=== PATIENT | female | born 1960 | race Caucasian/White ===

== ENCOUNTER 2019-07-10 12:50 | Inpatient (IN) | payer OTHER ==
[~2019-07-10] VITALS: Ht 160 cm; Wt 57.2 kg
--- NOTE | 2019-07-10 14:06 | NUR ---
GARBAGE COLLECTION SUPERVISORCONVENTIONAL UNDERWRITER NOTE: RECEIVED AWAKE PATIENT VIA GURNEY AND ACCOMPANIED BY 2 ENGINEERING DEPARTMENT CHAIR FROM [facility]. PRESENTING WITH PLEASANT DEMEANOR AND APPEARS ALERT AND ORIENTED X4. 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 ABLE TO WALK INDEPENDENTLY AND MAKE NEEDS KNOWN. NO PAIN REPORTED AT THIS TIME. WITH IV SITE AT LEFT AC WITH G20, SITE CLEAN, SECURE AND PATENT. TOLERATING ROOM AIR WELL AT 97%. PATIENT IS VERY MOBILE AND ACTIVE AND UNABLE TO SIT STILL IN ONE PLACE. ATTACHED PLATE DEVELOPER AND PRESENTED WITH SINUS TACHYCARDIA @ 124BPM. NOT IN DISTRESS AND STILL MOVING AROUND A LOT DESPITE EFFORTS TO SLOW HER DOWN. WILL CONTINUE TO MONITOR AND ASSESS PATIENT.
[2019-07-10 14:20] VITALS: BP 127/83
--- NOTE | 2019-07-10 14:20 | NUR ---
EAR NOSE THROAT PHYSICIAN NOTE: PATIENT HAS BEEN GRADUALLY EXHIBITING UNSUAL BEHAVIOR SINCE ADMISSION, UNABLE TO CONTINUALLY ASSESS PATIENT SHE KEEP SAYING THAT SHE NEEDS "TO BE GROUNDED" AFTER EVERY 2 QUESTIONS. NURSE IS UNCLEAR ABOUT WHAT IT MEANS AND THE THAT HAS JUST ARRIVED 5 MINUTES AGO IS AT BEDSIDE AND EXPLAINED WHAT IT MEANT. PATIENT GRADUALLY IS BECOMING VERBALLY AGGRESSIVE AND MORE ERRATIC WITH HER BEHAVIOR AND DEMEANOR EVEN THOUGH MOST OF HER RESPONSES WITH QUESTIONS ARE CONSIDERED NORMAL. AND STAFF TRYING TO CALM PATIENT DOWN BUT SHE REFUSES. WHEN ASKED ABOUT HER CHIEF COMPLAINT OF CHEST PAIN, PATIENT IS NOW STATING THAT SHE HAS CRUSHING/PRESSURE PAIN IN CONCENTRATED IN THE CHEST AND WHEN ASKED THE INTENSITY, SHE REPLIED THAT "IT IS . PATIENT DOES NOT APPEAR TO BE IN DISTRESS, NO FACIAL GRIMACING NOTED. HEART MONITORING SHOWS SINUS TACHYCARDIA BUT OTHER VITAL SIGNS ARE NORMAL. OFFERED OXYGEN VIA NASAL CANNULA BUT PATIENT BECAME AGITATED, AND REFUSED AND IS NOW SITTING AT THE EDGE OF THE BED SCREAMING "I'M GOING TO FALL DOWN. CALL THE DOCTOR NOW". NURSE IS BESIDE THE PATIENT AND IS ENSURING SAFETY FOR THE PATIENT TO NOT FALL. PATIENT IS NOTED TO BE FORCING HERSELF TO LEAN FORWARD OFF THE BED. ADDITIONAL STAFF CALLED BY NURSE FOR HELP REPOSITIONING WITH THE PATIENT.
[2019-07-10] MEDS ORDERED: KEY,NONCONTROL,TO KEEP IN PYXI 1 EA MC ONE (14:26)
--- NOTE | 2019-07-10 14:30 | NUR ---
GATE MORTISER OPERATOR NOTE: PATIENT HAS SOMEWHAT CALMED DOWN AND NURSE PAGED FOR DR. REY MALAGON REGARDING PATIENT'S BEHAVIOR. IS AT BEDSIDE AND ALSO CALMING THE PATIENT DOWN. ASSESSMENT HAS BEEN CONTINUED, PATIENT REFUSED NASAL SWAB FOR MRSA SCREENING AND NURSE WAS ONLY ALLOWED TO DO PARTIAL SKIN ASSESSMENT BY PATIENT. NURSE HAS NOTED A SURGICAL SCAR ON THE LOWER BACK AND SOME BRUISING ON THE RIGHT TROCHANTER. SKIN ASSESSMENT ON THE LEFT SIDE OF THE BODY HAS NOT BEEN ASSESSED.
--- NOTE | 2019-07-10 14:55 | NUR ---
CAR DISPATCHER NOTE: PATIENT AGAIN WITH AGGRESSIVE BEHAVIOR AND IS NOW GETTING UP IN BED, AND LYING DOWN BECAUSE SHE WANTS TO BE PREPARED WHEN "HER LAST NODE GIVES UP AND SHE WILL NEED CHEST COMPRESSIONS" AND IS CONTINUOUSLY ASKING TO BE SEEN BY THE DOCTOR. STAFF IS EXPLAINING TO THE PATIENT TO GET BACK IN BED AND WAIT FOR THE DOCTOR THERE FOR HER SAFETY. ADDITIONAL HELP FROM STAFF ON THE FLOOR HAS BEEN REQUESTED. SECURITY PRESENT. PATIENT IS NOW ASKING STAFF TO COMPRESS HER CHEST, EXPLAINED TO HER THAT IT IS CONTRAINDICATED AND IT WOULD BE DANGEROUS FOR HER. WILL NOT LISTEN TO THE STAFF. STAFF HAS PAGED DR. MALAGON FOR ESCALATION OF PATIENT'S BEHAVIOR. AWAITING FOR DR. LE TO ARRIVE AND ASSESS THE PATIENT WHILE STAYING AT HER BEDSIDE.
[2019-07-10] MEDS ORDERED: MORPHINE SULFATE INJ 2 MG/ML DISP.SYRIN IV PRN (15:00)
[2019-07-10] MEDS ORDERED: ZOLPIDEM TARTRATE 5 MG TABLET PO PRN (15:00)
[2019-07-10] MEDS ORDERED: ACETAMINOPHEN 325 MG TABLET PO PRN (15:00)
[2019-07-10] MEDS ORDERED: Z GUARD REMEDY 2 OZ OINT TP PRN (15:00)
[2019-07-10] MEDS ORDERED: MAG HYDROX/AL HYDROX/SIMETH 30 ML UDC PO PRN (15:00)
[2019-07-10] MEDS ORDERED: MAGNESIUM HYDROXIDE 30 ML UDC PO PRN (15:00)
[2019-07-10] MEDS ORDERED: HYDROCODONE/APAP 5/325MG 1 EACH TABLET PO PRN (15:00)
[2019-07-10] MEDS ORDERED: ONDANSETRON HCL/PF 4 MG/2 ML VIAL IVP PRN (15:00)
[2019-07-10] MEDS ORDERED: NITROGLYCERIN 0.4 MG/TAB BOTTLE SL PRN (15:00)
--- NOTE | 2019-07-10 15:00 | NUR ---
JACQUARD LOOM FIXER NOTES PT IS SO RESTLESS AND TRYING TO GET UP FROM THE BED,LYING ON THE FLOOR IN THE ROOM,AGITATED AND CONTINUOUSLY VERBALIZING HER HEART IS STOP AND REQUESTED TO KEEP COMPRESSING HER.ALL THE VITAL SIGNS ARE WNL AND O2 SATURATION IS 96%,[facility] SHE HAS NORMAL O2 SAT ACCORDING TO THE PT REQUEST PLACED PT ON 1LPM O2 VIA NC. IS AT BEDSIDE.[address] PCP [address]SAM RODRIGUEZ,SECURITY AT THE BEDSIDE. ORDERED PSYCH CONSULTATION,RESTRAINTS FOR 4 EXTREMITIES,STAT IV ATIVAN 2MG AND IV HALDOL 5MG IM.NEW ORDERS NOTED AND CARRIED OUT.
--- NOTE | 2019-07-10 15:05 | NUR ---
FLOTATION TENDER NOTES PAGED DR.FARRAG GUILLEN,PSYCH ONCALL,DR SAID HE CANNOT ABLE TO SEE THE PT TODAY AND CAN ONLY COME ON TOMORROW. MADE AWARE AND CALLED HEREAFTER AND SAID WILL COME AND SEE THE PT TODAY.
[2019-07-10] MEDS ORDERED: TOPI25TA49 PO (15:10)
[2019-07-10] MEDS ORDERED: TEMA30CA PO (15:10)
[2019-07-10] MEDS ORDERED: LORAZEPAM INJ 2 MG/ML VIAL IM STA (15:27)
[2019-07-10] MEDS ORDERED: HALOPERIDOL LACTATE INJ 5 MG/ML VIAL IM STA (15:27)
[2019-07-10 16:00] VITALS: BP_SYST 127; BP_SYST 169; BP_DIAS 100; BP_DIAS 83
--- NOTE | 2019-07-10 16:09 | NUR ---
BLOOD BANK WORKER NOTES PLACED PT ON RESTRAINTS AND O2 VIA NC 2LPM,ADMINISTERED IM STAT HALDOL AND ATIVAN.STILL HAVING MILD RESTLESS,CONTINUE TO MONITOR THE PT CLOSELY. IS AT BEDSIDE.
[2019-07-10] MEDS ORDERED: DIVALPROEX SODIUM 125 MG CAP.SPRINK PO SCH (17:00)
--- NOTE | 2019-07-10 18:51 | NUR ---
CAR SALESMAN CLOSING NOTE: PATIENT IS ASLEEP WITH AT BEDSIDE. APPEARS COMFORTABLE AND RELAXED. NO SOB, NO DISTRESS NOTED. SINUS RHYTHM SHOWN IN CARDIAC MONITORING AT 89BPM. WITH 4-POINT RESTRAINT, R WRIST AND L ANKLE RELEASED FOR PATIENT COMFORT. SHE WAS ABLE TO CONSUME ABOUT 70% OF DINNER AND WAS NOT EXHIBITING ANY AGGRESSION DURING FEEDING. IV SITE IS PATENT, DRESSING CLEAN AND DRY. ENDORSED TO ONCOMING RN FOR CONTINUITY OF CARE. WILL MAKE NEXT SHIFT AWARE OF PATIENT AND FAMILY REQUEST OF LOGROLLING THE PATIENT DURING TURN BECAUSE OF HER PREVIOUS SURGERIES.
[2019-07-10 20:00] VITALS: BP 106/48
--- NOTE | 2019-07-10 21:00 | NUR ---
RT NOTE PT REFUSED EKG. PT NON COMPLIANT AT THIS TIME. CHARGE NURSE, DIPTI OLMSTEAD.
[2019-07-10] MEDS: OLANZAPINE 5 MG/TAB.RAPDIS PO SCH (22:00)
[2019-07-10] MEDS ORDERED: SIMVASTATIN 20 MG TABLET PO SCH (22:00)
[2019-07-11] VITALS: BP 111/67
[2019-07-11] MEDS ORDERED: TEMAZEPAM 15 MG CAPSULE PO PRN (00:30)
[2019-07-11] MEDS: TOPIRAMATE 25 MG TABLET PO SCH ×2 (00:51→09:54)
--- NOTE | 2019-07-11 06:46 | NUR ---
RN NOTES PATIENT IS REFUSING 0400 V/S TO BE TAKEN. Addendum: 07/11/19 at 0648 by ARABELLA MINAYA RN ALL RISKS AND BENEFITS HAS BEEN EXPLAINED TO THE PT. WILL CONTINUE TO MONITOR PATIENT CLOSELY.
--- NOTE | 2019-07-11 07:15 | NUR ---
DIRT BIKE MECHANIC OPENING NOTE RECEIVED REPORT FROM NOC SHIFT NURSE. PT ASLEEP IN BED, ON ROOM AIR, SATURATING WELL, NO SIGNS OF RESPIRATORY DISTRESS NOTED, RESPIRATIONS EVEN AND UNLABORED. SINUS TACHY ON SUPERVISOR TELLERS HR 102. IV SITE ON LEFT AC G20 PATENT, INTACT, WITH SALINE LOCK. BED IN LOW POSITION, LOCKED, CALL LIGHT WITHIN REACH.
[2019-07-11 07:21] LABS: CREATININE 0.9 mg/dL (0.6-1.3); MAGNESIUM 2.5 mg/dL (1.8-2.4); PHOSPHORUS 4.2 mg/dL (2.5-4.9); POTASSIUM 3.2 mmol/L (3.5-5.1)
[2019-07-11 07:23] LABS: BASOPHILS % (AUTO) 0.3 % (0.0-2.0); EOSINOPHILS % (AUTO) 0.9 % (0.0-6.0); HEMATOCRIT 37 % (33-45); HEMOGLOBIN 12.3 g/dL (11.5-14.8); LYMPHOCYTES # (AUTO) 1.9 /CMM (0.8-4.8); LYMPHOCYTES % (AUTO) 33.1 % (20.0-44.0); MEAN CORPUSCULAR HGB CONC 34 g/dl (31.0-36.0); MEAN CORPUSCULAR VOLUME 86 fL (82-100); MONOCYTES # (AUTO) 0.5 /CMM (0.1-1.30); MONOCYTES % (AUTO) 9.4 % (2.0-12.0); NEUTROPHILS # (AUTO) 3.2 /CMM (1.8-8.9); NEUTROPHILS % (AUTO) 56.3 % (43.0-81.0); PLATELET COUNT (AUTO) 329 /CMM (150-450); RED BLOOD CELL COUNT(AUTO) 4.24 MIL/uL (4.0-5.2); WHITE BLOOD COUNT (AUTO) 5.7 K/uL (4.3-11.0)
[2019-07-11 07:31] LABS: THYROID STIMULATING HORMONE 0.403 uIU/mL (0.358-3.74)
[2019-07-11 08:00] VITALS: BP 144/70
[2019-07-11] MEDS: OLANZAPINE 5 MG/TAB.RAPDIS PO SCH (09:00)
[2019-07-11] MEDS ORDERED: ASPIRIN EC 81 MG TABLET.DR PO SCH (09:00)
[2019-07-11] MEDS ORDERED: OLAN5TAB6 PO (11:00)
[2019-07-11] MEDS ORDERED: ASPI-1152 PO (11:00)
[2019-07-11] MEDS ORDERED: SIMV20TA6 PO (11:00)
[2019-07-11 12:00] VITALS: BP 116/92
[2019-07-11] MEDS: POTASSIUM CHLORIDE 20 MEQ TAB.PRT.SR PO SCH ×2 (12:41→14:14)
[2019-07-11] MEDS ORDERED: POTASSIUM CHLORIDE 20 MEQ TAB.PRT.SR PO ONE (14:30)
--- NOTE | 2019-07-11 14:35 | NUR ---
ALL DISCHARGE PAPERWORK SIGNED, DISCHARGE INSTRUCTIONS EXPLAINED TO PT AND PT'S , PRESCRIPTION GIVEN. PT REFUSED TO TAKE DISCHARGE PHOTOS. PT LEFT UNIT IN STABLE CONDITION AT 14:35 WITH .
== END 2019-07-11 14:35 | disposition home or self-care (01) | DRG 392 ==
LOC: EDBD → TELE1 13:52
DX: K22.4 Dyskinesia of esophagus (principal); I31.8 Other specified diseases of pericardium; F39 Unspecified mood [affective] disorder; F29 Unspecified psychosis not due to a substance or known physiological condition; M79.7 Fibromyalgia; M81.0 Age-related osteoporosis without current pathological fracture; Z90.710 Acquired absence of both cervix and uterus; G43.909 Migraine, unspecified, not intractable, without status migrainosus; Z82.49 Family history of ischemic heart disease and other diseases of the circulatory system; I25.10 Atherosclerotic heart disease of native coronary artery without angina pectoris; K21.9 Gastro-esophageal reflux disease without esophagitis; G51.0 Bell's palsy; F41.0 Panic disorder [episodic paroxysmal anxiety]; Z98.890 Other specified postprocedural states
CPT/HCPCS: 36415; 80048-TC; 80061-TC; 83735-TC; 83880; 84100-TC; 84443-TC; 84484-TC; 85025-TC; 93307-TC; G0378; J1630; J2060

== ENCOUNTER 2019-07-14 14:17 | Inpatient (IN) | payer OTHER ==
[~2019-07-14] VITALS: Ht 160 cm; Wt 57.2 kg
[~2019-07-14 14:17] MED LIST: ASPI-1152 PO; OLAN5TAB6 PO; SIMV-46 PO; TEMA30CA PO; TOPI25TA49 PO
--- NOTE | 2019-07-14 14:30 | NUR ---
PARTY PLAN SALES CONSULTANT OPENING NOTES RECEIVED PATIENT VIA GURNEY ACCOMPANIED BY 2 EMT DIRECT ADMIT FROM [facility]. NO SOB. DENIES ANY C/O PAIN NOR DISCOMFORT AT THIS TIME. TRANSFERRED PATIENT TO BED. ORIENTED PATIENT TO ROOM, CALL LIGHT AND UNIT. UNABLE TO DO SKIN BODY ASSESSMENT DUE TO PATIENT IS ANXIOUS AND NEEDS TO BE IN HER "EDMOND". PATIENT HAS EPISODES OF PACING AROUND IN ROOM AND SPECIFIC RITUALS. ATTEMPTED PERIPHERAL IV ACCESS MULTIPLE TIMES AND NOTED GOOD BLOOD RETURN AND PATENCY BUT PATIENT C/O PAIN AT SITE AND WANTS IT REMOVED. INFORMED PAM WITH ORDER FOR MIDLINE. PATIENT UNCOOPERATIVE AT THIS TIME. CALL LIGHT WITHIN REACH. CONSENT SIGNED FOR CTA AWAITING FOR PROCEDURE.
[2019-07-14] MEDS ORDERED: BUPR300F3 BC (14:40)
[2019-07-14] MEDS ORDERED: OXYC10TA49 PO (14:40)
[2019-07-14] MEDS ORDERED: IOHEXOL-350 100 ML VIAL IV ONE ×2 (15:49→17:58)
[2019-07-14] MEDS ORDERED: IV NS 0.9% 0 ML IV ONE (15:49)
[2019-07-14] MEDS ORDERED: CT SWABBABLE VALVE TRANS SET 1 EA INFUS.SET MC ONE ×2 (15:49→17:58)
[2019-07-14] MEDS ORDERED: IV NS 0.9% 250 ML IV ONE ×2 (17:59→19:21)
[2019-07-14] MEDS ORDERED: MAGNESIUM HYDROXIDE 30 ML UDC PO PRN (18:00)
[2019-07-14] MEDS ORDERED: Z GUARD REMEDY 2 OZ OINT TP PRN (18:00)
[2019-07-14] MEDS ORDERED: MAG HYDROX/AL HYDROX/SIMETH 30 ML UDC PO PRN (18:00)
[2019-07-14] MEDS ORDERED: METOPROLOL TARTRATE INJ 5 MG/5 ML AMPUL ONE ×2 (18:01→18:49)
--- NOTE | 2019-07-14 18:10 | NUR ---
BEAN PICKER MACHINE OPERATOR NOTES PATIENT OFF UNIT FOR CTA
[2019-07-14] MEDS ORDERED: NITROGLYCERIN 0.4 MG/TAB BOTTLE SL ONE (18:30)
[2019-07-14] MEDS: METOPROLOL TARTRATE INJ 5 MG/5 ML AMPUL IVP PRN ×10 (18:35→19:20)
[2019-07-14] MEDS ORDERED: NITROGLYCERIN 0.4 MG/TAB BOTTLE ONE (18:37)
--- NOTE | 2019-07-14 19:00 | NUR ---
SHOW DOG TRAINER NOTES PATIENT REMAINS OFF UNIT. ENDORSED TO ONCOMING SHIFT REGARDING SKIN ASSESSMENT. REMAINS ON TELE MONITORING SINUS TACH 109 PRIOR TO LEAVING UNIT.
--- NOTE | 2019-07-14 19:30 | NUR ---
TRACTOR DISTRIBUTOR OPENING NOTE PATIENT IS NOT ON THE UNIT. CURRENTLY GETTING CTA. RECEIVED REPORT AT THIS TIME. WILL AWAIT PATIENTS ARRIVAL BACK ONTO UNIT.
--- NOTE | 2019-07-14 19:40 | NUR ---
CUTTING INSPECTOR NOTE PATIENT ARRIVED ONTO UNIT. TOLERATING ROOM AIR. RESPIRATIONS ARE EVEN AND UNLABORED. NO S/S SOB NOTED. EXTERNAL TELE MONITOR READS SR HR 77. IN NO APPARENT DISTRESS AT THIS TIME. IV ACCESS IN ROSALIE MIDLINE PATENT AND SALINE LOCKED. BED IS LOW AND LOCKED, HOB FLAT, SIDE RAILS UP X2. CALL LIGHT WITHIN REACH. WILL CONTINUE TO MONITOR.
--- NOTE | 2019-07-14 19:50 | NUR ---
GASKET MAKER NOTE OBTAINED MRSA SWAB. WILL SEND TO LAB. PATIENT REFUSED DVT PUMP.
[2019-07-14 20:00] VITALS: BP 113/56
--- NOTE | 2019-07-14 20:50 | NUR ---
SLACK LINE YARDER NOTE CONDUCTED SKIN ASSESSMENT AT THIS TIME. PICTURES TAKEN AND PLACED IN CHART.
[2019-07-14] MEDS: HYDROCODONE/APAP 10/325MG 1 EA TABLET PO PRN (22:13)
--- NOTE | 2019-07-14 22:15 | NUR ---
LEARNING DISABILITIES RESOURCE TEACHER NOTE ADMINISTERED PRN NORCO 10/325 FOR PAIN 8/10 IN LOWER BACK. WILL CONTINUE TO MONITOR.
[2019-07-14 23:00] VITALS: BP 109/78
--- NOTE | 2019-07-14 23:20 | NUR ---
RAILWAY ENGINEER NOTE PATIENT C/O CHEST PRESSURE/ HEAVINESS RADIATING TO LEFT SIDE OF NECK AND JAW. PAIN 9/10. BP 109/78 HR 83. WILL NOTIFY .
--- NOTE | 2019-07-14 23:30 | NUR ---
MANAGER SAFE NOTE MD TELEPHONE ORDER: STAT EKG. ORDERS READ BACK, NOTED, AND CARRIED OUT.
[2019-07-15] VITALS (7 sets, daily range): BP systolic 103–127; BP diastolic 63–78
[2019-07-15] MEDS: ONDANSETRON HCL/PF 4 MG/2 ML VIAL IVP PRN ×2 (00:04→16:57)
[2019-07-15] MEDS: MORPHINE SULFATE INJ 4 MG/ML DISP.SYRIN IV PRN ×2 (00:05→16:57)
[2019-07-15 06:50] LABS: BASOPHILS % (AUTO) 0.4 % (0.0-2.0); EOSINOPHILS % (AUTO) 0.8 % (0.0-6.0); HEMATOCRIT 37 % (33-45); HEMOGLOBIN 12.3 g/dL (11.5-14.8); LYMPHOCYTES % (AUTO) 28.2 % (20.0-44.0); MEAN CORPUSCULAR HGB CONC 33 g/dl (31.0-36.0); MEAN CORPUSCULAR VOLUME 87 fL (82-100); MONOCYTES # (AUTO) 0.6 /CMM (0.1-1.30); MONOCYTES % (AUTO) 8.5 % (2.0-12.0); NEUTROPHILS # (AUTO) 4.3 /CMM (1.8-8.9); NEUTROPHILS % (AUTO) 62.1 % (43.0-81.0); PLATELET COUNT (AUTO) 429 /CMM (150-450); RED BLOOD CELL COUNT(AUTO) 4.31 MIL/uL (4.0-5.2); WHITE BLOOD COUNT (AUTO) 6.9 K/uL (4.3-11.0)
--- NOTE | 2019-07-15 07:00 | NUR ---
ENGRAVER RUBBER XCLOSING NOTE PATIENT IS VERY ANXIOUS, CONTINUOUSLY STANDING, SITTING AND WALKING AROUND. TOLERATING ROOM AIR. RESPIRATIONS ARE EVEN AND UNLABORED. NO SOB NOTED. EXTERNAL TELE MONITOR READS SR HR 77. NO DISTRESS NOTED . IV ACCESS IN ROSALIE MIDLINE PATENT AND SALINE LOCKED. BED IS LOW AND LOCKED, HOB FLAT, SIDE RAILS UP X2. CALL LIGHT WITHIN REACH. WILL ENDORSE TO NEXT SHIFT
[2019-07-15 07:15] LABS: CALCIUM, SERUM 8.9 mg/dL (8.5-10.1); MAGNESIUM 2.3 mg/dL (1.8-2.4); PHOSPHORUS 3.9 mg/dL (2.5-4.9); POTASSIUM 3.7 mmol/L (3.5-5.1)
--- NOTE | 2019-07-15 08:00 | NUR ---
RN MS NOTES PT AWAKE, ALERT AND ORIENTED, WALKING AROUND HER ROOM, NO COMPLAINT AT THIS TIME, RESPIRATIONS NORMAL AND NON LABORED, CALL LIGHT WITHIN REACH.
[2019-07-15] MEDS: METOPROLOL SUCCINATE 50 MG TAB.SR.24H PO SCH (09:29)
--- NOTE | 2019-07-15 09:42 | NUR ---
RN MS NOTES PT SEEN BY DR. TAVAREZ, PLAN OF CARE DISCUSSED WITH PT, VERBALIZED UNDERSTANDING.
[2019-07-15] MEDS: HYDROCODONE/APAP 10/325MG 1 EA TABLET PO PRN (11:01)
--- NOTE | 2019-07-15 13:00 | NUR ---
RN MS NOTES PT IN BED, RESTING, PAIN MEDS GIVEN FOR PAIN MANAGEMENT, NO BEHAVIOR PROBLEM NOTED AT THIS TIME, CALL LIGHT WITHIN REACH, NEEDS ATTENDED.
[2019-07-15] MEDS: ACETAMINOPHEN 325 MG TABLET PO PRN (14:36)
--- NOTE | 2019-07-15 18:05 | NUR ---
RN MS NOTES PT IN BED, AWAKE, ALERT AND ORIENTED, PAIN MEDS GIVEN ORDERED, NOT IN DISTRESS, AT BEDSIDE, CALL LIGHT WITHIN REACH, ASSISTED WITH NEEDS, SEEN AND EXAMINED BY DR. LEWIS, RECOMMENDATIONS DISCUSSED WITH PT AND , VERBALIZED UNDERSTANDING.
--- NOTE | 2019-07-15 19:30 | NUR ---
RN MS OPENING PM NOTE BEDSIDE REPORT RECIEVED FROM SAMUEL BUSH. NATALIYA PR INTERN IN THE ROOM DISCUSSING POC WITH PATIENT. PT SITTING ON BED, AWAKE, ALERT AND ORIENTED, AT THE BEDSIDE INVOLVED WITH CARE. PT IN NO APPARENT DISTRESS CALL LIGHT AVAILABLE IN ROOM AT BEDSIDE. VERBALZIED TO CALL FOR ASSISTANCE IF NEEDED.
[2019-07-15] MEDS ORDERED: LORAZEPAM 1 MG TABLET PO ONE (20:00)
--- NOTE | 2019-07-15 20:50 | NUR ---
MIDLINE REMOVED. NEW IV INSERTED. PATIENT COMPLAINING THAT MIDLINE HAS BEEN BOTHERING HER ALL DAY AND REQUESTIG THAT IT BE REMOVED. SITE EXAMINED. AND NOTED TO BE MILDLY BROUISED AND SWOLLEN. MIDLINE REMOVED PER PATIENT REQUEST CATHETER NOTED TO BE INTACT. PRESSURE DRESSING APPLIED. NO S/S OF COMPLICATIONS NOTED. PATIENT IN NO APPARENT DISTRESS AND TOLERATED PROCEDURE FAIR. STATES "THAT TAPE IS SOTHEING AINT IT. MY SKIN IS SO SENSITIVE." PATIENT REPORTS SHE FEELS BETTER WITH CATHETER OUT OF HER ARM. NEW IV INSERTED TO [facility] WRIST GAUGE #22. AFTER ONE ATTEMPT. FLUSHED PATENT INTACT PATIENT DENIES PAIN AT SITE AT HEATHER TIME. REINFORCED WITH PATIENT THAT SHE WILL ONLY NEED IV WHILE BEING HOSPITALIZED FOR MEDICAL REASONS. VERBALIZED UDNERSTANDING. IN ROOM SLEEPING AT THE BEDSIDE. PATIENT STATES SHE WILL PROBABLY BE IN BED WITH HIM. SPOKE WITH CHARGE NURSE IN [facility] TO ISSUE VISITORS ARE AGAINST POLICY. TASHA STATES THAT PATIENT HAS PERMISSION TO HAVE STAY AND THE ROOM HAS BEEN SET ASIDE FOR THEIR PRIVACY. REINFORCED WITH PATIENT THAT IT WAS OK FOR TO STAY. ENCOURAGD PATIENT TO CALL FOR ASSISTANCE NEEDED. SIGN PLACED ON PATIENTS ROOM DOOR PER PT REQUEST STATING. LOW STIMULATION AREA TO ENSURE STAFF DON'T INCREASE HER ANXIETY AND KNOWN TO COME IN A CALM DEMEANOR INTO ROOM. WILL CONT TO MONITOR.
[2019-07-16] MEDS: ACETAMINOPHEN 325 MG TABLET PO PRN (07:13)
--- NOTE | 2019-07-16 07:30 | NUR ---
RN MS NOTES PT AWAKE, ALERT AND ORIENTED, WALKING INSIDE HER ROOM, PASTOR AT BEDSIDE, NO COMPLAINT AT THIS TIME, NOT IN DISTRESS, PLAN OF CARE DISCUSSED WITH PT AND , VERBALIZED UNDERSTANDING.
[2019-07-16 08:00] VITALS: BP 101/72
[2019-07-16] MEDS: oxyCODONE IR immediate release 5 MG PO PRN ×2 (08:56→23:12)
[2019-07-16] MEDS: METOPROLOL SUCCINATE 50 MG TAB.SR.24H PO SCH (09:00)
--- NOTE | 2019-07-16 10:05 | NUR ---
Social Work Note Met with patient in her room with Vanessa Ramirez LCSW present after Dr Tovar reported that patient may want voluntary admission to [facility]. Patient does not want this at all and is not meeting any criteria for voluntary or 5150 criteria for admission. She is alert and oriented x4 and unwilling to consuder any outpatient psychiatric intensive outpatient referrals. This clinician suggested outpatient therapy and patient said she has " some numbers". Patient is focussed on her spinal surgery, pain control and Dr Lantigua. She responded "ask Dr Lantigua" to all questions and was very good at deflecting questions away from her issues. Patient's mood was euthymic and she said she wants to go home. She did not express any suicidal or homicidal ideation. There are no 5150 criteria as she has a home to go to so is not gravely disabled. Patient want to control her care and acknowledged that it is hard for her to allow others to care for her and suggest treatment plans. Patient is refusing the Zyprexa prescribed by Dr Tovar. She is accepting the opioids prescribed by Dr Lantigua. Patient did not accept any intervention from the mental health side. Dr Tovar advised. No 5150 or voluntary inpatient psychiatric criteria at this point.
--- NOTE | 2019-07-16 12:36 | NUR ---
RN MS NOTES PT AWALE, ALERT AND ORIENTED, NO COMPLAINT OF PAIN, STATED THE PAIN MEDICATION WORKED, NOT IN DISTRESS, NEEDS ATTENDED.
[2019-07-16 16:00] VITALS: BP 93/64
--- NOTE | 2019-07-16 18:13 | NUR ---
RN MS NOTES PT AWAKE, ALERT AND ORIENTED, NO BEHAVIOR PROBLEM NOTED AT THIS TIME, PT SEEN AND EXAMINED BY DR. AN AND DR. LEWIS, PT COMPLIANT WITH MEDS, NO COMPLAINT OF PAIN AT THIS TIME, NOT IN DISTRESS, EEG DONE, ALL NEEDS ATTENDED.
[2019-07-16] MEDS ORDERED: OLANZAPINE 5 MG/TAB.RAPDIS SL PRN (18:30)
--- NOTE | 2019-07-16 19:10 | NUR ---
RN MS OPENING NOTES RECEIVED PATIENT IN ROOM AWAKE ALERT AND ORIENTED X4, VERBALLY RESPONSIVE, APPEARS CALM AT THIS TIME, RESPIRATIONS EVEN AND UNLABORED WITH EQUAL RISE AND FALL OF CHEST, DENIES ANY PAIN OR DISCOMFORT AT THIS TIME, IV SITE TO RIGHT WRIST #22G INTACT AND PATENT, NO REDNESS, NO INFILTRATION PRESENT, ORIENTED TO STAFF AND CALL LIGHT AND KEPT WITHIN REACH, AMBULATORY STEADY. DISCUSSED PLAN OF CARE, FLUIDS OFFERED, ALL NEEDS ATTENDED WILL CONTINUE TO MONITOR AND ATTEND TO NEEDS.
[2019-07-16 20:00] VITALS: BP 100/66
[2019-07-16 20:05] VITALS: BP 100/66
--- NOTE | 2019-07-16 21:07 | NUR ---
RN MS NOTES ZYDIS 5MG GIVEN ORDERED, OBSERVED PATIENT NO ADVERSE REACTIONS PRESENT, STATES " SHE FEELS ITS WORKING, CLEARING HER MIND, HER BACK PAIN IS GONE, FEELS GOOD." PATIENT APPEARS HAPPY AT THIS TIME.
[2019-07-16] MEDS ORDERED: OLANZAPINE 5 MG/TAB.RAPDIS PO SCH (22:00)
--- NOTE | 2019-07-16 23:14 | NUR ---
RN MS NOTES PATIENT COMPLAINT OF PAIN TO BACK 04/19 REQUESTING FOR PAIN MEDICATION OXY. OXY IR GIVEN ORDERED, WILL CONTINUE TO MONITOR FOR EFFECTIVENESS.
--- NOTE | 2019-07-17 06:37 | NUR ---
RN CLOSING NOTES PATIENT IN ROOM AWAKE ALERT AND ORIENTED X4, VERBALLY RESPONSIVE, APPEARS CALM AT THIS TIME, RESPIRATIONS EVEN AND UNLABORED WITH EQUAL RISE AND FALL OF CHEST, DENIES ANY PAIN OR DISCOMFORT AT THIS TIME, IV SITE TO RIGHT WRIST #22G INTACT AND PATENT, NO REDNESS, NO INFILTRATION PRESENT, PER PATIENT OXY IR EFFECTIVE WITH PAIN RELIEF AND WAS ABLE TO SLEEP. CALL LIGHT KEPT WITHIN REACH, AMBULATORY STEADY. FLUIDS OFFERED, ALL DUE MEDS GIVEN WITH NO ADVERSE REACTIONS, FLUIDS OFFERED, ALL NEEDS ATTENDED WILL CONTINUE TO MONITOR AND ATTEND TO NEEDS AND ENDORSE TO NEXT SHIFT.
[2019-07-17 07:00] LABS: BASOPHILS % (AUTO) 0.5 % (0.0-2.0); EOSINOPHILS % (AUTO) 0.9 % (0.0-6.0); HEMATOCRIT 39 % (33-45); HEMOGLOBIN 12.7 g/dL (11.5-14.8); LYMPHOCYTES # (AUTO) 1.9 /CMM (0.8-4.8); LYMPHOCYTES % (AUTO) 29.1 % (20.0-44.0); MEAN CORPUSCULAR HGB CONC 33 g/dl (31.0-36.0); MEAN CORPUSCULAR VOLUME 88 fL (82-100); MONOCYTES # (AUTO) 0.6 /CMM (0.1-1.30); MONOCYTES % (AUTO) 9.4 % (2.0-12.0); NEUTROPHILS # (AUTO) 3.9 /CMM (1.8-8.9); NEUTROPHILS % (AUTO) 60.1 % (43.0-81.0); PLATELET COUNT (AUTO) 402 /CMM (150-450); RED BLOOD CELL COUNT(AUTO) 4.41 MIL/uL (4.0-5.2); WHITE BLOOD COUNT (AUTO) 6.4 K/uL (4.3-11.0)
[2019-07-17] MEDS: ACETAMINOPHEN 325 MG TABLET PO PRN (07:04)
--- NOTE | 2019-07-17 07:07 | NUR ---
rn ms notes tylenol prn as ordered requested and given states pain 4/10 aching back legs and neck will continue to monitor for effectiveness.
[2019-07-17 07:11] LABS: CALCIUM, SERUM 9.2 mg/dL (8.5-10.1); CREATININE 0.9 mg/dL (0.6-1.3); MAGNESIUM 2.2 mg/dL (1.8-2.4); PHOSPHORUS 4.5 mg/dL (2.5-4.9); POTASSIUM 3.7 mmol/L (3.5-5.1)
[2019-07-17 08:00] VITALS: BP 128/78
--- NOTE | 2019-07-17 08:00 | NUR ---
RN MS OPENING NOTES RECEIVED PATIENT IN ROOM AWAKE ALERT AND ORIENTED X4, VERBALLY RESPONSIVE, APPEARS CALM AT THIS TIME, RESPIRATIONS EVEN AND UNLABORED WITH EQUAL RISE AND FALL OF CHEST, DENIES ANY PAIN OR DISCOMFORT AT THIS TIME, IV SITE TO RIGHT WRIST #22G INTACT AND PATENT, NO REDNESS, NO INFILTRATION PRESENT, ORIENTED TO STAFF AND CALL LIGHT AND KEPT WITHIN REACH, AMBULATORY STEADY. DISCUSSED PLAN OF CARE, FLUIDS OFFERED, AT THE BEDSIDE.NEEDS ATTENDED WILL CONTINUE TO MONITOR AND ATTEND TO NEEDS.
[2019-07-17] MEDS: METOPROLOL SUCCINATE 50 MG TAB.SR.24H PO SCH ×2 (09:00→11:26)
[2019-07-17] MEDS ORDERED: OLAN5TAB6 PO (10:33)
[2019-07-17] MEDS ORDERED: METO50TA7 PO (10:33)
[2019-07-17 11:26] VITALS: BP 112/77
--- NOTE | 2019-07-17 11:34 | NUR ---
AFTER TALKING TO THE DOCTOR,PT DECIDED TO TAKE HER METOPROLOL 100 MG PO PILLS.BP 112/77 HR 98.
--- NOTE | 2019-07-17 12:30 | NUR ---
PT REFUSED SKIN PHOTOS TO BE TAKEN BECAUSE THEY ARE IN A HURRY TO GO HOME.
--- NOTE | 2019-07-17 12:40 | NUR ---
DISCHARGED PT HOME WITH STABLE V/S.DENIES ANY PAIN OR DISTRESS.IV H/L REMOVED TO RT HAND WITH NO BLEEDING NOTED.DISCHARGE INSTRUCTIONS AND PRESCRIPTIONS GIVEN TO THE PT.ACCOMPANIED BY .
== END 2019-07-17 12:40 | disposition home or self-care (01) | DRG 880 ==
LOC: TELE 14:17 → MED 07-15 09:05
PROVIDERS: ADMIT Nurse Practitioner Acute Care; ATTEND Nurse Practitioner Acute Care
PROC: 05H633Z Insertion of Infusion Device into Left Subclavian Vein, Percutaneous Approach (ICD-10-PCS; principal; 2019-07-14)
DX: F41.9 Anxiety disorder, unspecified (principal); F23 Brief psychotic disorder; M81.0 Age-related osteoporosis without current pathological fracture; G89.4 Chronic pain syndrome; M79.7 Fibromyalgia; G43.909 Migraine, unspecified, not intractable, without status migrainosus; F31.9 Bipolar disorder, unspecified; F11.90 Opioid use, unspecified, uncomplicated; F41.0 Panic disorder [episodic paroxysmal anxiety]; G51.0 Bell's palsy; G98.8 Other disorders of nervous system; Z98.890 Other specified postprocedural states
CPT/HCPCS: 36415; 70450-TC; 75574; 80048-TC; 80061-TC; 83735-TC; 84100-TC; 85025-TC; 87081-TC; 95819-TC; G0378; J2270; J2405; J3490; J7050; Q9967

== ENCOUNTER 2019-08-25 04:34 | Emergency (ER) | payer OTHER ==
[~2019-08-25] VITALS: Ht 160 cm; Wt 59.0 kg
[~2019-08-25 04:34] MED LIST changes: -ASPI-1152 PO; +METO50TA7 PO; -SIMV-46 PO; -TEMA30CA PO; -TOPI25TA49 PO
[2019-08-25] MEDS ORDERED: LIDOCAINE/PRILOCAINE (5GM) 5 GM TUBE TP ONE ×2 (04:58→06:00)
--- NOTE | 2019-08-25 05:00 | NUR ---
59/f bibself from home c/o back pain for past x1 day; pt denies having any kind of fall or trauma. pt states she has a hx of spinal surgeries
--- NOTE | 2019-08-25 05:01 | NUR ---
pt also has hx of degenerative disk disease, and fibromyalgia. pt is a/ox3, verbal, able to make needs known. no s/s of acute distress or sob noted. vs stable. pt resting in bed, being seen by MD at bedside.
--- NOTE | 2019-08-25 05:23 | NUR ---
lidocaine 2.5% & prilocaine 2.5% topical cream applied to pt's back.
--- NOTE | 2019-08-25 05:45 | NUR ---
Patient discharged to home in stable condition. Written and verbal after care instructions given. Patient verbalizes understanding of instruction. Patient left facility via wheelchair, accompanied by ER staff and at side. vs stable. no iv access.
[2019-08-25 05:48] VITALS: BP 130/71
== END 2019-08-25 05:48 | disposition home or self-care (01) ==
LOC: ER 04:35
DX: G89.18 Other acute postprocedural pain (principal); G43.909 Migraine, unspecified, not intractable, without status migrainosus; G89.4 Chronic pain syndrome; G47.00 Insomnia, unspecified; Z85.828 Personal history of other malignant neoplasm of skin; Z98.890 Other specified postprocedural states; Z79.899 Other long term (current) drug therapy; Z88.1 Allergy status to other antibiotic agents; Z88.8 Allergy status to other drugs, medicaments and biological substances; Z88.9 Allergy status to unspecified drugs, medicaments and biological substances